=== PATIENT | male | born 1945 | race African-American/Black ===

== ENCOUNTER 2017-02-25 11:36 | Emergency (ER) | payer OTHER ==
[~2017-02-25] VITALS: Ht 177.8 cm; Wt 80.0 kg
[2017-02-25 11:47] VITALS: BP 159/57
== END 2017-02-25 18:01 | disposition left against medical advice (07) ==
LOC: ER 14:33
DX: R10.9 Unspecified abdominal pain (principal); Z53.21 Procedure and treatment not carried out due to patient leaving prior to being seen by health care provider